=== PATIENT | female | born 1980 | race Caucasian/White ===

== ENCOUNTER 2025-07-16 10:20 | Emergency (ER) | payer BC, SELFPAY ==
[2025-07-16 10:32] VITALS: BP 144/110; PULSE 93; RESP 14; TEMP 36.6; O2SAT 100
--- NOTE | 2025-07-16 11:09 | ED.EAR ---
HPI - Ear Problem General Chief complaint: Ear Stated complaint: right ear problems Time Seen by Provider: 07/16/25 10:50 Source: patient and RN notes reviewed Mode of arrival: ambulatory Limitations: no limitations History of Present Illness HPI Narrative: 44-year-old female presents Express Care complaining of right ear pain for few days. Patient reports history of ear problems growing up as a child. Patient reports purulent drainage from the right ear. Patient denies any recent swimming. Patient denies any cough, any other upper respiratory symptoms, nausea, vomiting, chest pain, shortness of breath or any other symptoms. Patient has not tried any [id number] to help with symptoms. Patient denies any significant past medical history. Related Data Allergies Allergy/AdvReac Type Severity Reaction Status Date / Time No Known Allergies Allergy Verified 07/16/25 10:35 Review of Systems Review of Systems: CONSTITUTIONAL: Denies fever, chills, or sweats. EYES: Denies visual changes, redness, or discharge. ENT: Denies rhinorrhea, congestion, sore throat. Positive for otalgia. CARDIOVASCULAR: Denies chest pain, palpitations, or edema. RESPIRATORY: Denies cough or dyspnea. GASTROINTESTINAL: Denies abdominal pain, nausea, vomiting, or diarrhea. GENITOURINARY: Denies dysuria or hematuria. SKIN: Denies rash or itching. MUSCULOSKELETAL: Denies back pain, joint pain, or myalgia. NEUROLOGIC: Denies headache, numbness, or weakness. PSYCHIATRIC: Denies anxiety or depression. All other systems reviewed are negative, except as documented in HPI. PMFSH Comments At the time of my signature, I reviewed and agree with the nursing past medical, surgical, social, and family history. There is no relevant family history pertinent to the patient complaint. Exam Narrative: GENERAL: This is a well-nourished, well-developed adult, in no apparent distress. They are non ill-appearing, nontoxic appearing. HEAD: normocephalic, atraumatic. EYES: Sclera clear/white. Conjunctiva normal. Vision is grossly intact. Extraocular movements intact EARS: External ears normal, right tragal tenderness. Right Auditory canals erythematous with exudate present, unable to visualize right TM. Left TM normal without perforation. Hearing grossly intact. NOSE: External nose normal with no obvious nasal discharge, nasal turbinates without redness, no rhinorrhea. THROAT: Mucous membranes moist, posterior pharynx clear, without erythema or swelling. Uvula midline. NECK: Neck supple, non-tender without lymphadenopathy, masses or thyromegaly. CARDIOVASCULAR: Regular rate and rhythm RESPIRATORY: Respiratory rate normal, respiratory effort nonlabored, no respiratory distress SKIN: warm, Dry, intact with no suspicious lesions or rash, good texture and turgor. NEURO: awake, alert, and oriented to person, place and time. There were no obvious focal neurologic abnormalities. EXTREMITIES: No joint tenderness, effusion, or edema noted. Course Course Emergency Course: Portions of this record may have been created with voice recognition software Level of Care: Express Care Visit Vital Signs Vital signs: Vital Signs Temperature 97.8 F 07/16/25 10:32 Pulse Rate 93 07/16/25 10:32 Respiratory Rate 14 07/16/25 10:32 Blood Pressure 144/110 H 07/16/25 10:32 Pulse Oximetry 100 07/16/25 10:32 Oxygen Delivery Room Air 07/16/25 10:32 Temperature 97.8 F 07/16/25 10:32 Pulse Rate 93 07/16/25 10:32 Respiratory Rate 14 07/16/25 10:32 Blood Pressure 144/110 H 07/16/25 10:32 Pulse Oximetry 100 07/16/25 10:32 Oxygen Delivery Room Air 07/16/25 10:32 Reviewed Medical Decision Making MDM Narrative Medical decision making narrative: Patient has right-sided otitis externa. Unable to visualize right TM. Will Cover for otitis media as well. Will prescribe ciprofloxacin-dexamethasone drops and amoxicillin. Discussed physical exam findings. Advised supportive measures and signs/symptoms to go to the ER. Pt is appropriate for outpt treatment and f/u. Differential Diagnosis Differential Diagnosis: Otitis media, otitis externa, upper respiratory infection Vital Signs Vital Signs: Vital Signs Temperature 97.8 F 07/16/25 10:32 Pulse Rate 93 07/16/25 10:32 Respiratory Rate 14 07/16/25 10:32 Blood Pressure 144/110 H 07/16/25 10:32 Pulse Oximetry 100 07/16/25 10:32 Oxygen Delivery Room Air 07/16/25 10:32 Temperature 97.8 F 07/16/25 10:32 Pulse Rate 93 07/16/25 10:32 Respiratory Rate 14 07/16/25 10:32 Blood Pressure 144/110 H 07/16/25 10:32 Pulse Oximetry 100 07/16/25 10:32 Oxygen Delivery Room Air 07/16/25 10:32 Critical Care Time Critical Care Time Critical Care Time: No Discharge Plan Discharge Clinical Impression: Otitis externa Qualifiers: Otitis externa type: diffuse Chronicity: acute Laterality: right Qualified Code(s): H60.311 - Diffuse otitis externa, right ear Patient Disposition: Home Condition: Stable Instructions: Antibiotic Form, Ear Infection (ED) Additional Instructions: Take antibiotic drops as directed. You may take ibuprofen 600 mg to 800 mg every 6-8 hours. Do not exceed more than 800 mg of ibuprofen per dose. Do not exceed more than 3200 mg ibuprofen in a day. You may take up to 1000 mg Tylenol every 6-8 hours. Do not exceed 1000 mg per dose, do exceed more than 4000 mg of Tylenol in a day. Avoid water or anything into the ear for one week Follow up with your personal physician for further evaluation and treatment within 3-5days. If your symptoms persist, change or worsen significantly, go to the emergency department for further evaluation. Patient Language: Setswana Prescriptions: New ciprofloxacin-dexamethasone 0.3-0.1 % drops,suspension 4 drp RIGHT EAR Q12H 7 Days Qty: 7.5 0RF amoxicillin 875 mg tablet 875 mg PO Q12H 7 Days Qty: 14 0RF Follow-up/Referrals: Luis Fernando,MD Cruz [Primary Care Provider] - Time of Disposition: 11:05
== END 2025-07-16 11:10 | disposition home or self-care (01) ==
PROVIDERS: PCP Internal Medicine
DX: H60.311 Diffuse otitis externa, right ear (principal)
CPT/HCPCS: 99203; G0463